=== PATIENT | female | born 1970 ===

== ENCOUNTER 2019-06-17 12:25 | Outpatient (CLI) | payer OTHER | END 2019-06-17 15:11 | disposition home or self-care (01) | LOC: MAMO-SONO 12:25 | DX: D24.1 Benign neoplasm of right breast (principal); N63.11 Unspecified lump in the right breast, upper outer quadrant; N60.11 Diffuse cystic mastopathy of right breast; N60.12 Diffuse cystic mastopathy of left breast ==